=== PATIENT | male | born 1975 | race Two or more races ===

== ENCOUNTER 2023-02-14 08:28 | Inpatient (IN) | payer BC ==
[~2023-02-14] VITALS: Ht 170.2 cm; Wt 90.7 kg
[2023-02-14] VITALS (31 sets, daily range): BP systolic 116–188; BP diastolic 54–111; PULSE 63–93; RESP 14–31; TEMP 97.9–98.7
[2023-02-14] MEDS ORDERED: TENECTEPLASE 50MG/VIAL IV ONE (09:00)
[2023-02-14 09:21] LABS: CHLORIDE 107 mEq/L (98-107)
[2023-02-14 09:24] LABS: BASOPHILS % 0.4 % (0.0-2.0); HEMATOCRIT. 42.3 % (42.0-52.0); HEMOGLOBIN. 14.4 g/dL (14.0-18.0); LYMPHOCYTES % 28.9 % (20.0-50.0); MEAN CORPUSCULAR HEMOGLOBIN 31.1 pg (28.0-32.0); MEAN CORPUSCULAR VOLUME 91.3 fL (80.0-94.0); MONOCYTES % 9.5 % (2.0-8.0); NEUTROPHILS % 60.2 % (40.0-76.0); PLATELET 293 x1000/uL (130-400); RED BLOOD CELL COUNT 4.63 mill/uL (4.7-6.1); RED CELL DISTRIBUTION WIDTH 13.6 % (11.6-14.6)
[2023-02-14 09:30] LABS: ETHANOL BLOOD < 10 mg/dL (-10)
[2023-02-14] MEDS ORDERED: TENECTEPLASE 50MG/VIAL IV SCH (09:30)
[2023-02-14] MEDS ORDERED: IOHEXOL-350 100 ML BOTTLE ONE (09:58)
[2023-02-14] MEDS ORDERED: DOCUSATE SODIUM 100MG CAPSULE PO PRN (11:30)
[2023-02-14] MEDS ORDERED: ACETAMINOPHEN 325MG TABLET PO PRN (11:30)
[2023-02-14] MEDS ORDERED: ZOLPIDEM TARTRATE 5MG TABLET PO PRN (11:30)
[2023-02-14] MEDS ORDERED: NITROGLYCERIN 0.4MG TABLET SL SL PRN (11:30)
[2023-02-14] MEDS ORDERED: GUAIFENESIN 200MG/10ML SUGAR FREE UDC PO PRN (11:30)
[2023-02-14] MEDS ORDERED: MAGNESIUM/ALUMINUM HYDROXIDE/SIMETHICONE 30ML UDC PO PRN (11:30)
[2023-02-14] MEDS ORDERED: IPRATROPIUM/ALBUTEROL 0.5-3(2.5)MG/3ML NEB NEB PRN (11:30)
[2023-02-14] MEDS ORDERED: CLONIDINE 0.1MG TABLET PO PRN (11:30)
[2023-02-14] MEDS ORDERED: ONDANSETRON HCL 4MG/2ML INJ IV PRN (11:30)
[2023-02-14] MEDS ORDERED: *TENECTEPLASE FOR AIS XX SCH (11:45)
[2023-02-14 11:58] LABS: T4 FREE 0.89 ng/dL (0.76-1.46)
[2023-02-14 12:15] LABS: FOLIC ACID (FOLATE) SERUM 14.6 ng/mL (>5.38)
[2023-02-14 12:37] LABS: CLARITY URINE CLEAR (CLEAR); COLOR URINE YELLOW (YELLOW); KETONES URINE NEGATIVE (NEGATIVE); LEUKOCYTE ESTERASE URINE NEGATIVE (NEGATIVE); NITRITE URINE NEGATIVE (NEGATIVE); OCCULT BLOOD URINE NEGATIVE (NEGATIVE); PH URINE 5.5 (4.5-8.0); PROTEIN URINE NEGATIVE (NEGATIVE); SPECIFIC GRAVITY URINE 1.039 (1.005-1.030); UROBILINOGEN URINE 0.2 E.U./dL (0.2-1.0)
[2023-02-14 13:09] LABS: *AMPHETAMINES SCREEN URINE NEGATIVE (NEGATIVE); *BARBITURATES SCREEN URINE NEGATIVE (NEGATIVE); *BENZODIAZEPINES SCREEN URINE NEGATIVE (NEGATIVE); *COCAINE SCREEN URINE NEGATIVE (NEGATIVE); CANNABINOID URINE SCREEN NEGATIVE (NEGATIVE); METHADONE URINE SCREEN NEGATIVE (NEGATIVE); OPIATES URINE SCREEN NEGATIVE (NEGATIVE); PHENCYCLIDINE URINE SCREEN NEGATIVE (NEGATIVE)
[2023-02-14] MEDS ORDERED: REGADENOSON 0.4 MG/5 ML IV NR (15:15)
[2023-02-14 16:34] LABS: CREATINE KINASE MB FRACTION 1.1 ng/mL (0.5-3.6)
[2023-02-14] MEDS ORDERED: ATOR40TA70 MT (22:02)
[2023-02-14] MEDS ORDERED: CLOP75TA33 PO (22:02)
[2023-02-14] MEDS ORDERED: LOSA50TA41 PO (22:02)
[2023-02-14] MEDS: FAMOTIDINE 20MG TABLET PO SCH (22:25)
[2023-02-14 23:15] LABS: CREATINE KINASE 100 IU/L (39-308); CREATINE KINASE MB FRACTION < 1.0 ng/mL (0.5-3.6)
[2023-02-15] VITALS (63 sets, daily range): BP systolic 95–208; BP diastolic 46–107; PULSE 70–117; RESP 14–26; TEMP 97.8–98.7
[2023-02-15 05:23] LABS: BASOPHILS % 0.7 % (0.0-2.0); EOSINOPHILS % 1.4 % (0.0-5.0); HEMATOCRIT. 42.7 % (42.0-52.0); HEMOGLOBIN. 14.6 g/dL (14.0-18.0); LYMPHOCYTES % 31.6 % (20.0-50.0); MEAN CORPUSCULAR HEMOGLOBIN 30.9 pg (28.0-32.0); MEAN CORPUSCULAR VOLUME 90.8 fL (80.0-94.0); MEAN PLATELET VOLUME 7.3 fl (7.4-10.4); MONOCYTES % 11.3 % (2.0-8.0); PLATELET 302 x1000/uL (130-400); RED CELL DISTRIBUTION WIDTH 13.5 % (11.6-14.6)
[2023-02-15 05:27] LABS: PARTIAL THROMBOPLASTIN TIME 29.9 sec (23.4-31.0); PROTHROMBIN TIME 10.5 sec (9.6-11.0)
[2023-02-15 05:54] LABS: CHLORIDE 109 mEq/L (98-107)
[2023-02-15 06:03] LABS: PHOSPHORUS 4.1 mg/dL (2.5-4.9)
[2023-02-15] MEDS: FAMOTIDINE 20MG TABLET PO SCH ×2 (08:02→21:06)
[2023-02-15] MEDS: ASPIRIN 81MG EC TABLET PO SCH (09:19)
[2023-02-15] MEDS: CLOPIDOGREL 75MG TABLET PO SCH (09:19)
[2023-02-15] MEDS ORDERED: BUPIVACAINE HCL/PF 0.5% (5MG/ML) 10ML ONE (09:52)
[2023-02-15] MEDS ORDERED: LIDOCAINE HCL 1% 10 MG/ML 10ML VIAL ONE ×2 (09:52→12:23)
[2023-02-15] MEDS ORDERED: BACITRACIN 15GM TUBE TOP ONE (09:52)
[2023-02-15] MEDS ORDERED: HEPARIN SODIUM 1,000 UNIT/1ML VIAL IV ONE (09:52)
[2023-02-15] MEDS ORDERED: POLYMYXIN B SULFATE 500000 UNITS/VIAL ONE (09:52)
[2023-02-15] MEDS ORDERED: THROMBIN (BOVINE) 5000 UNITS/VIAL TOP ONE (09:53)
[2023-02-15] MEDS: ENOXAPARIN 40MG/0.4ML SYR SUBCUT SCH (10:03)
[2023-02-15] MEDS ORDERED: METOPROLOL TARTRATE 5MG/5ML VIAL IV PRN (10:15)
[2023-02-15] MEDS: METOPROLOL TARTRATE 50MG TABLET PO SCH ×2 (10:15→21:07)
[2023-02-15] MEDS ORDERED: IOHEXOL-350 100 ML BOTTLE ONE (10:49)
[2023-02-15] MEDS ORDERED: NITROGLYCERIN SPRAY/4.9GM CAN TL ONE (11:00)
[2023-02-15] MEDS ORDERED: EPHEDRINE SULFATE 50MG/ML VIAL ONE (12:22)
[2023-02-15] MEDS ORDERED: PROPOFOL 200MG/20ML VIAL IV ONE (12:23)
[2023-02-15] MEDS ORDERED: MIDAZOLAM HCL 2 MG/2 ML VIAL ONE (12:23)
[2023-02-15] MEDS ORDERED: FENTANYL CITRATE/PF 50MCG/ML 2ML VIAL ONE ×2 (12:23→14:45)
[2023-02-15] MEDS ORDERED: SODIUM CHLORIDE 0.9% 10ML VIAL ONE (12:26)
[2023-02-15] MEDS ORDERED: MORPHINE SULFATE 4 MG/ML CPJ (NOT FOR IM USE) IV PRN (12:30)
[2023-02-15] MEDS ORDERED: NICARDIPINE 40MG/200ML PREMIX 200 ML IV PRN (12:30)
[2023-02-15] MEDS ORDERED: NALOXONE HCL 0.4MG/ML VIAL IV PRN (12:30)
[2023-02-15] MEDS ORDERED: SUCCINYLCHOLINE CHLORIDE 200MG/10ML IV ONE (12:58)
[2023-02-15] MEDS ORDERED: ROCURONIUM BROMIDE 10MG/ML VIAL 5ML IV ONE (12:58)
[2023-02-15] MEDS ORDERED: CEFAZOLIN SODIUM 1000MG/VIAL ONE (13:23)
[2023-02-15] MEDS ORDERED: HEPARIN 1000 UNITS/ML 10ML ONE (13:39)
[2023-02-15] MEDS ORDERED: PROTAMINE SULFATE 10MG/ML VIAL 5ML IV ONE (14:00)
[2023-02-15] MEDS ORDERED: NEOSTIGMINE METHYLSULFATE 1MG/ML 10 ML VIAL ONE (14:09)
[2023-02-15] MEDS ORDERED: GLYCOPYRROLATE 0.2 MG/ML 2ML VIAL ONE (14:09)
[2023-02-15] MEDS: NICARDIPINE 50 MG in SODIUM CHLORIDE 0.9% 250 ML IV PRN ×2 (15:28→21:08)
[2023-02-15] MEDS: MORPHINE SULFATE 4 MG/ML CPJ (NOT FOR IM USE) IV PRN ×2 (15:52→18:56)
[2023-02-15] MEDS: ATORVASTATIN CALCIUM 40MG TABLET PO SCH (21:07)
[2023-02-15] MEDS: HYDROMORPHONE HCL/PF 2MG/ML CPJ IV PRN (21:33)
[2023-02-15] MEDS: ACETAMINOPHEN 325MG TABLET PO PRN (23:04)
[2023-02-16] VITALS (97 sets, daily range): BP systolic 84–167; BP diastolic 20–96; PULSE 81–108; RESP 8–22; TEMP 98.2–99
[2023-02-16] MEDS: HYDROMORPHONE HCL/PF 2MG/ML CPJ IV PRN ×7 (01:02→23:50)
[2023-02-16] MEDS ORDERED: THROAT LOZENGES-BENZOCAINE/MENTH/CETYLPYRD CL LOZENGES MM PRN (07:00)
[2023-02-16] MEDS: METOPROLOL TARTRATE 50MG TABLET PO SCH (08:19)
[2023-02-16] MEDS: FAMOTIDINE 20MG TABLET PO SCH ×2 (08:19→20:43)
[2023-02-16] MEDS: AMLODIPINE 5MG TABLET PO SCH (08:20)
[2023-02-16] MEDS: ACETAMINOPHEN 325MG TABLET PO PRN ×3 (08:22→23:50)
[2023-02-16] MEDS: CLOPIDOGREL 75MG TABLET PO SCH (09:00)
[2023-02-16] MEDS: ASPIRIN 81MG EC TABLET PO SCH (09:00)
[2023-02-16] MEDS: NICARDIPINE 50 MG in SODIUM CHLORIDE 0.9% 250 ML IV PRN ×2 (10:56→19:27)
[2023-02-16] MEDS: ENOXAPARIN 40MG/0.4ML SYR SUBCUT SCH (11:00)
[2023-02-16] MEDS: CARVEDILOL 6.25 MG TABLET PO SCH ×2 (11:26→20:43)
[2023-02-16] MEDS ORDERED: DEXAMETHASONE 10 MG/ML VIAL IV NR (19:45)
[2023-02-16] MEDS: ATORVASTATIN CALCIUM 40MG TABLET PO SCH (20:42)
[2023-02-17] VITALS (56 sets, daily range): BP systolic 91–159; BP diastolic 41–104; PULSE 78–115; RESP 5–31; TEMP 98.1–98.4
[2023-02-17] MEDS: DEXAMETHASONE 10 MG/ML VIAL IV SCH ×3 (01:52→16:17)
[2023-02-17] MEDS: NICARDIPINE 50 MG in SODIUM CHLORIDE 0.9% 250 ML IV PRN (01:59)
[2023-02-17] MEDS: HYDROMORPHONE HCL/PF 2MG/ML CPJ IV PRN ×2 (03:23→06:24)
[2023-02-17] MEDS: THROAT LOZENGES-BENZOCAINE/MENTH/CETYLPYRD CL LOZENGES MM PRN (07:22)
[2023-02-17] MEDS: LOSARTAN POTASSIUM 50 MG TABLET PO SCH (09:29)
[2023-02-17] MEDS: CLOPIDOGREL 75MG TABLET PO SCH (09:29)
[2023-02-17] MEDS: AMLODIPINE 5MG TABLET PO SCH (09:29)
[2023-02-17] MEDS: FAMOTIDINE 20MG TABLET PO SCH ×2 (09:29→20:26)
[2023-02-17] MEDS: ENOXAPARIN 40MG/0.4ML SYR SUBCUT SCH (09:30)
[2023-02-17] MEDS: CARVEDILOL 6.25 MG TABLET PO SCH ×2 (09:30→20:26)
[2023-02-17] MEDS: ASPIRIN 81MG EC TABLET PO SCH (09:30)
[2023-02-17] MEDS: ISOSORBIDE MONONITRATE 60MG TABLET SR 24HR PO SCH (11:45)
[2023-02-17] MEDS ORDERED: DEXAMETHASONE 10 MG/ML VIAL IV SCH (16:15)
[2023-02-17] MEDS: ATORVASTATIN CALCIUM 40MG TABLET PO SCH (20:26)
[2023-02-17] MEDS: ACETAMINOPHEN 325MG TABLET PO PRN (20:30)
[2023-02-18] VITALS (27 sets, daily range): BP systolic 100–149; BP diastolic 48–86; PULSE 78–100; RESP 5–20; TEMP 98.2–98.5; O2SAT 96
[2023-02-18] MEDS: FAMOTIDINE 20MG TABLET PO SCH (08:28)
[2023-02-18] MEDS: CLOPIDOGREL 75MG TABLET PO SCH (08:28)
[2023-02-18] MEDS: ISOSORBIDE MONONITRATE 60MG TABLET SR 24HR PO SCH (08:28)
[2023-02-18] MEDS: ASPIRIN 81MG EC TABLET PO SCH (08:28)
[2023-02-18] MEDS: CARVEDILOL 6.25 MG TABLET PO SCH (08:29)
[2023-02-18] MEDS: AMLODIPINE 5MG TABLET PO SCH (08:29)
[2023-02-18] MEDS: LOSARTAN POTASSIUM 50 MG TABLET PO SCH (08:29)
[2023-02-18] MEDS ORDERED: ISOS60TA76 PO (10:08)
[2023-02-18] MEDS ORDERED: COR6 PO (10:08)
[2023-02-18] MEDS ORDERED: AMLO5TAB88 PO (10:08)
[2023-02-18] MEDS ORDERED: FAMO20TA8 PO (10:08)
[2023-02-18] MEDS ORDERED: ASPI-1406 PO (10:08)
[2023-02-18] MEDS: ENOXAPARIN 40MG/0.4ML SYR SUBCUT SCH (10:59)
[2023-02-18] MEDS: THROAT LOZENGES-BENZOCAINE/MENTH/CETYLPYRD CL LOZENGES MM PRN (10:59)
== END 2023-02-18 14:40 | disposition home or self-care (01) | DRG 38 ==
LOC: ER 08:28 → EDBEDREQTM 09:12 → EDBEDREQSVC 09:12 → EDBEDREQ 09:12 → MICUSO 09:53 → EDBEDREQ 10:12
PROVIDERS: ADMIT Internal Medicine; ATTEND Internal Medicine
PROC: 03CH0ZZ Extirpation of Matter from Right Common Carotid Artery, Open Approach (ICD-10-PCS; principal; 2023-02-15)
PROC: 03CK0ZZ Extirpation of Matter from Right Internal Carotid Artery, Open Approach (ICD-10-PCS; 2023-02-15)
PROC: 03CM0ZZ Extirpation of Matter from Right External Carotid Artery, Open Approach (ICD-10-PCS; 2023-02-15)
DX: I65.21 Occlusion and stenosis of right carotid artery (principal); I82.90 Acute embolism and thrombosis of unspecified vein; I10 Essential (primary) hypertension; E78.00 Pure hypercholesterolemia, unspecified; Z20.822 Contact with and (suspected) exposure to COVID-19; I71.40 Abdominal aortic aneurysm, without rupture, unspecified; I73.9 Peripheral vascular disease, unspecified; F41.9 Anxiety disorder, unspecified; G83.24 Monoplegia of upper limb affecting left nondominant side; Z95.820 Peripheral vascular angioplasty status with implants and grafts; Z79.899 Other long term (current) drug therapy; Z86.79 Personal history of other diseases of the circulatory system
CPT/HCPCS: 36415; 70496; 70498; 70551; 71045; 75571; 80053; 80061; 80305; 80320; 81003; 82550; 82553; 82607; 82746; 82962; 83036; 83540; 83550; 83735; 84100; 84439; 84443; 84484; 85025; 87426; 88304; 88311; 93005; 93306; 93970; 99285; J0330; J0690; J1100; J1170; J1644; J1650; J2250; J2270; J2704; J2710; J2720; J2997; J3010; J3490; J7050; Q9967; G0480